=== PATIENT | male | born 1935 | race African-American/Black ===

== ENCOUNTER → 2018-02-14 | Day surgery (SDC) | payer MEDICARE, MEDICAID ==
[~2018-02-14] MED LIST: LIDOCAINE HCL 1% 20ML VIAL (Pyxis) INJ ONE; SODIUM BICARBONATE 4% (2.4MEQ) 5ML VIAL IV ONE
== END | disposition home or self-care (01) ==
LOC: RAD 13:47
PROVIDERS: ATTEND Family Medicine Adult Medicine
DX: I89.8 Other specified noninfective disorders of lymphatic vessels and lymph nodes (principal); Z79.899 Other long term (current) drug therapy
CPT/HCPCS: 10022; 76942; 88305; J3490